=== PATIENT | female | born 1945 | race Caucasian/White ===

== ENCOUNTER → 2017-02-13 | Outpatient (CLI) | payer MEDICARE, OTHER ==
[~2017-02-13] MED LIST: ALPR.25T PO; ASP81TEC PO; ATR20T PO; BEANO PO; CITA20TA4 PO; CYCL10TA9 PO; DOCU-161 PO; FAMO10TA43 PO; FRSM40T PO; LISI10TA PO; MTP25TSR PO; POTA99TA7 PO; TRAM50TA2 PO; ZLP10T PO
== END ==
LOC: CARD 13:36
PROVIDERS: ATTEND Internal Medicine Cardiovascular Disease
DX: I25.10 Atherosclerotic heart disease of native coronary artery without angina pectoris (principal); R09.89 Other specified symptoms and signs involving the circulatory and respiratory systems; R00.2 Palpitations; I10 Essential (primary) hypertension
CPT/HCPCS: 93306